=== PATIENT | male | born 1980 | race Asian ===

== ENCOUNTER 2017-02-09 11:59 | Emergency (ER) | payer SELFPAY ==
[~2017-02-09 11:59] MED LIST: PERCOCET1 TA2 PO; XANAX2 MG PO
== END 2017-02-09 14:46 | disposition home or self-care (01) ==
LOC: ER 11:59
DX: T40.1X1A Poisoning by heroin, accidental (unintentional), initial encounter (principal); R06.81 Apnea, not elsewhere classified; F11.10 Opioid abuse, uncomplicated; F41.9 Anxiety disorder, unspecified; Z79.899 Other long term (current) drug therapy
CPT/HCPCS: 71010; 93005; 96374; 99285; J2310